=== PATIENT | male | born 1955 ===

== ENCOUNTER → 2018-06-19 | Outpatient (REF) | payer OTHER ==
[~2018-06-19] MED LIST: ASPI-757 PO; ASPI81TA94 PO; CHOL10005 PO; METO25TA23 PO
== END ==
LOC: ZZSENDIN 16:11
PROVIDERS: ATTEND Physician Assistant
DX: M25.521 Pain in right elbow (principal)
CPT/HCPCS: 84550

== ENCOUNTER → 2018-08-31 | Outpatient (CLI) | payer OTHER ==
--- NOTE | 2018-09-01 08:44 | RADIOLOGY IMAGING REPORT ---
FACILITY: [facility] [place] PATIENT NAME: Michel Khan : 1955 MR: [id number] V: [id number] EXAM DATE: ORDERING PHYSICIAN: SUPA SWIFT TECHNOLOGIST: Location: [facility] Patient: Michel Khan : 1955 Visit/Account:[id number] Date of Sevice: 08/31/2018 SOFT TISSUE HEAD NECK HISTORY: Mass within the right neck. Several years, zone two COMPARISON: None. FINDINGS: Within the region of palpable concern, there is a homogeneous, unremarkable appearance of the right p arotid gland. This is symmetric in echogenicity and size as compared to the contralateral side. The re is no concerning lesion. No lymphadenopathy by size criteria. Posterior and superior to the paro tid gland, there is a mildly prominent but subcentimeter lymph node noted measuring 9 x 8 x 5 mm. IMPRESSION: 1. In the region of the palpable abnormality, there is a homogeneous, normal-appearing parotid gland . Posterior to the superior aspect of the parotid gland, there is a mildly prominent yet subcentimet er 9 mm lymph node. Report Dictated By: Jeremy Peacock MD at 09/01/2018 8:34 AM Report E-Signed By: Jeremy Peacock MD at 09/01/2018 8:39 AM WSN:[email or web address]
== END ==
LOC: US 01:29
PROVIDERS: ATTEND Family Medicine
DX: R59.0 Localized enlarged lymph nodes (principal)
CPT/HCPCS: 76536

== ENCOUNTER → 2018-12-28 | Outpatient (REF) | payer OTHER | LOC: ZZSENDIN 11:22 | PROVIDERS: ATTEND Physician Assistant | DX: M10.00 Idiopathic gout, unspecified site (principal) | CPT/HCPCS: 84550 ==